=== PATIENT | male | born 1945 | race Caucasian/White ===

== ENCOUNTER 2024-02-09 10:41 | Emergency (ER) | payer OTHER ==
[~2024-02-09] VITALS: Ht 180.3 cm; Wt 97.5 kg
[~2024-02-09 10:41] MED LIST: Prinivil10 MG PO
[2024-02-09 11:18] LABS: BASOPHILS ABSOLUTE AUTO 0.04 K/mm3 (0.00-0.23); BASOPHILS PERCENT AUTO 1 % (0-2); EOSINOPHILS ABSOLUTE AUTO 0.17 K/mm3 (0.00-0.68); EOSINOPHILS PERCENT AUTO 2 % (0-6); Hematocrit 39.1 % (37.0-53.0); IMMATURE GRAN ABSOLUTE AUTO 0.02 K/mm3 (0.00-0.10); IMMATURE GRAN PERCENT AUTO 0 % (0-1); LYMPHOCYTES ABSOLUTE AUTO 1.69 K/mm3 (0.84-5.20); LYMPHOCYTES PERCENT AUTO 23 % (21-46); MONOCYTES ABSOLUTE AUTO 0.44 K/mm3 (0.16-1.47); MONOCYTES PERCENT AUTO 6 % (4-13); Mean Corpuscular HGB 31.3 pg (26.0-34.0); Mean Corpuscular HGB Conc 33.2 g/dL (31.5-36.5); Mean Corpuscular Volume 94 fL (80-100); Mean Platelet Volume 10.7 fL (9.1-12.4); NEUTROPHILS ABSOLUTE AUTO 5.07 K/mm3 (1.96-9.15); NEUTROPHILS PERCENT AUTO 68 % (41-73); Platelet Count 207 K/mm3 (150-400); RDW Coefficient Variation 12.7 % (11.7-14.2); RDW Standard Deviation 43.6 fL (35.1-46.3); Red Blood Cell Count 4.16 M/mm3 (4.30-5.90); White Blood Cell Count 7.43 K/mm3 (4.00-11.30)
[2024-02-09 11:40] LABS: Albumin, Blood 3.8 g/dL (3.4-5.0); Albumin/Globulin Ratio 1.2 (0.8-1.8); Bilirubin, Total 0.5 mg/dL (0.1-1.0); Bun/Creatinine Ratio 21.6 (12.0-20.0); Calcium, Blood 8.9 mg/dL (8.5-10.1); Creatinine, Blood 1.48 mg/dL (0.60-1.20); Globulin, Blood 3.2 g/dL (2.2-4.0); Potassium, Blood 4.5 mmol/L (3.5-5.5)
[2024-02-09 14:48] VITALS: BP 128/68
== END 2024-02-09 14:49 | disposition home or self-care (01) ==
LOC: ER 10:41
PROVIDERS: Physician Assistant
DX: R00.1 Bradycardia, unspecified (principal); I95.9 Hypotension, unspecified; I12.9 Hypertensive chronic kidney disease with stage 1 through stage 4 chronic kidney disease, or unspecified chronic kidney disease; E11.22 Type 2 diabetes mellitus with diabetic chronic kidney disease; N18.9 Chronic kidney disease, unspecified; Z79.899 Other long term (current) drug therapy
CPT/HCPCS: 71046; 80053; 84484; 85025; 93005; 93010; 99284-25

== ENCOUNTER 2024-11-06 07:59 | Day surgery (SDC) | payer OTHER ==
[~2024-11-06] VITALS: Ht 182.9 cm; Wt 93.9 kg
[2024-11-06] VITALS (10 sets, daily range): BP systolic 169–208; BP diastolic 72–116
[~2024-11-06 07:59] MED LIST changes: +ATOR20 PO; +CYAN500 PO; +METF500C PO; +NORT25 PO; +VITAMIN B-122000 MC1 PO
[2024-11-06] MEDS ORDERED: CeFAZolin Sodium 1000 mg Vial ONE (08:58)
[2024-11-06] MEDS ORDERED: Heparin Sodium 1000 Units/ML 10ML MDV ONE (08:59)
[2024-11-06] MEDS ORDERED: NS 1,000 ML IV ONE ×2 (08:59→09:33)
[2024-11-06] MEDS ORDERED: CeFAZolin Sodium 2,000 MG VIAL ONE (09:32)
[2024-11-06] MEDS ORDERED: NS 50 ML IV ONE (09:32)
[2024-11-06] MEDS ORDERED: FentaNYL Citrate 50 MCG/ML 2 ML Injection ONE (09:32)
[2024-11-06] MEDS ORDERED: Midazolam HCl 1MG / ML 2ML Vial ONE (09:32)
[2024-11-06] MEDS ORDERED: HydrALAZINE HCl 20 MG / ML 1ML Vial ONE (11:06)
--- NOTE | 2024-11-06 11:41 | NUR ---
pt back to recovery from lab. pt a&o sitting up in recliner. site soft and non-tender per pt. no bleeding/hematoma noted. pt given water per request. at bedside.
[2024-11-06] MEDS ORDERED: Labetalol HCL 5 MG/ML 4ML Injection (Single Dose) ONE (12:03)
--- NOTE | 2024-11-06 12:10 | NUR ---
REPORT GIVEN EARLIER, ARRIVED BACK IN ROOM AND REPORT RECEIVED FROM CHUN VELEZ RN; LABETALOL GIVEN 5MG IV RECENTLY, GIVEN 10 MG HYDRALAZINE IV IN PROCEDURE, BP REMAINS ELEVATED, MONITORING. SITE PACEMAKER INSERTION CHECKED BY HARPAL SAENZ EARLIER, APPEARS INTACT/UNCHANGED. VSS OTHERWISE, PLAN D/C, PENDING WRITTEN SCRIPT, ATTEMPTING TO FAX LISINOPRIL SCRIPT TO [facility]. OTHER D/C ORDERS IN PROGRESS.
--- NOTE | 2024-11-06 12:57 | NUR ---
pt back to recovery from xray. pt given lunch tray. site soft and non-tender per pt. no bleeding.hematoma noted.
--- NOTE | 2024-11-06 13:58 | NUR ---
PATIENT RETURNED EARLIER FROM [facility], RECIEVED HYDRALAZINE 10 MG IN PROCEDURE, UPON RETURN BP REMAINED ELEVATED, GIVEN 5 MG LABETALOL TWICE AND BP WENT FROM 210 SYSTOLIC TO 160'S/180'S SYSTOLIC, ENCOURAGED TO CALL OR RETURN IF ANY CONCERNS, ICE PACK TO SITE AND SITE INTACT, TAKEN TO IMAGING EARLIER ON RETURN TO ROOM SEEN BY SOLE NÚÑEZ TO D/C. FAXED SCRIPT TO [facility], ASSISTED BY BLU TOBACCO EDUCATOR. REVIEWED D/C INSTRUCTIONS, D/C MEDICATIONS AND F/U APPOINTMENTS WITH PATIENT, DENIED QUESTIONS/CONCERNS, ALSO AT BEDSIDE AT THAT TIME. IV REMOVED, CANNULA INTACT. PATIENT DRESSED, BELONGINGS GATHERED, TAKEN BY WHEELCHAIR AND LEFT IN CARE OF AT 1350.
== END 2024-11-06 13:50 | disposition home or self-care (01) ==
LOC: MHTC 07:59
DX: I45.5 Other specified heart block (principal); I44.1 Atrioventricular block, second degree; R00.1 Bradycardia, unspecified; I35.1 Nonrheumatic aortic (valve) insufficiency; I10 Essential (primary) hypertension; E78.5 Hyperlipidemia, unspecified; G47.33 Obstructive sleep apnea (adult) (pediatric); Z79.84 Long term (current) use of oral hypoglycemic drugs; Z79.899 Other long term (current) drug therapy; Z88.6 Allergy status to analgesic agent; Z88.8 Allergy status to other drugs, medicaments and biological substances
CPT/HCPCS: 33208; 71046; 99152; 99153; C1785; C1894; C1898; J0360; J0690; J1644; J2250; J3010; J7030; J7040; Q9967